=== PATIENT | female | born 1980 | race American Indian/Alaskan Native ===

== ENCOUNTER 2021-05-17 12:43 | Emergency (ER) | payer SELFPAY | END 2021-05-17 13:00 | disposition left against medical advice (07) | LOC: ED 12:43 | DX: Z00.8 Encounter for other general examination (principal); Z53.21 Procedure and treatment not carried out due to patient leaving prior to being seen by health care provider ==

== ENCOUNTER 2021-05-20 08:25 | Emergency (ER) | payer OTHER ==
[2021-05-20 08:56] VITALS: BP 124/83
--- NOTE | 2021-05-20 11:02 | Emergency Department Report ---
- General Chief complaint: Skin/Abscess/Foreign Body Stated complaint: POSSIBLE SPIDER BITE/LT THIGH Time Seen by Provider: 05/20/21 10:52 Source: patient Mode of arrival: Ambulatory Limitations: No Limitations - History of Present Illness Initial comments: 40-year-old -Thai female presents to the emergency room complaining of a possible spider bite to the left thigh for 1 week. Patient states that it is firm red sore. She noticed some drainage but then it gets firm again. She is allergic to doxycycline. Denies any fever chills no nausea no vomiting no difficulty walking. complaint: abscess/boil Onset/Timin -: week(s) Location: LLE Severity scale (0 -10): 5 Quality: stabbing, sharp Consistency: constant Improves with: none Worsens with: none Treatments Prior to Arrival: none, attempted to drain pus at - Related Data Previous Rx's Medication Instructions Recorded Last Taken Type cephALEXin [Keflex] 500 mg PO Q8HR #21 cap 05/20/21 Unknown Rx Allergies Allergy/AdvReac Type Severity Reaction Status Date / Time doxycycline AdvReac Intermediate Angioedema Verified 05/20/21 10:57 Abscess Boil HPI - HPI Chief Complaint: Skin/Abscess/Foreign Body Stated Complaint: POSSIBLE SPIDER BITE/LT THIGH Time Seen by Provider: 05/20/21 10:52 Home Medications: Previous Rx's Medication Instructions Recorded Last Taken Type cephALEXin [Keflex] 500 mg PO Q8HR #21 cap 05/20/21 Unknown Rx Allergies/Adverse Reactions: Allergies Allergy/AdvReac Type Severity Reaction Status Date / Time doxycycline AdvReac Intermediate Angioedema Verified 05/20/21 10:57 ED Review of Systems ROS: Stated complaint: POSSIBLE SPIDER BITE/LT THIGH Other details as noted in HPI Comment: All other systems reviewed and negative ED Past Medical Hx - Past Medical History Previous Medical History?: No - Surgical History Past Surgical History?: Yes Additional Surgical History: Umbilical hernia repair - Social History Smoking Status: Current Every Day Smoker Substance Use Type: Marijuana - Medications Home Medications: Home Medications Medication Instructions Recorded Confirmed Last Taken Type cephALEXin [Keflex] 500 mg PO Q8HR #21 cap 05/20/21 Unknown Rx ED Physical Exam - General Limitations: No Limitations ED Course Vital Signs 05/20/21 05/20/21 08:51 08:54 Temperature 98.0 F Pulse Rate 71 65 Respiratory 18 20 Rate Blood Pressure 155/132 Blood Pressure 124/83 [Left] Blood Pressure 124/83 [Right] O2 Sat by Pulse 100 98 Oximetry ED Medical Decision Making - Medical Decision Making 40-year-old -Thai female presents to the emergency room complaining of a possible spider bite to the left thigh for 1 week. Patient states that it is firm red sore. She noticed some drainage but then it gets firm again. She is allergic to doxycycline. Denies any fever chills no nausea no vomiting no difficulty walking. Patient be treated for abscess with Keflex. Can take ibuprofen and Tylenol as needed for pain. Follow-up with your primary care provider if symptoms persist. Can use warm compresses. Critical care attestation.: If time is entered above; I have spent that time in minutes in the direct care of this critically ill patient, excluding procedure time. ED Disposition Clinical Impression: Abscess Disposition: 01 HOME / SELF CARE / HOMELESS Is pt being admited?: No Does the pt Need Aspirin: No Condition: Stable Instructions: Skin Abscess, [id number] Additional Instructions: Complete antibiotics as prescribed. Ibuprofen as needed for pain. Prescriptions: cephALEXin [Keflex] 500 mg PO Q8HR #21 cap Referrals: OLGA TOBAR MD [Staff Physician] - 3-5 Days Forms: Work/School Release Form(ED)
== END 2021-05-20 12:03 | disposition home or self-care (01) ==
LOC: ED 08:25
DX: L02.416 Cutaneous abscess of left lower limb (principal); F17.200 Nicotine dependence, unspecified, uncomplicated; F12.90 Cannabis use, unspecified, uncomplicated; Z88.8 Allergy status to other drugs, medicaments and biological substances; Z79.899 Other long term (current) drug therapy; Z98.890 Other specified postprocedural states
CPT/HCPCS: 99282

== ENCOUNTER 2022-04-05 11:06 | Emergency (ER) | payer SELFPAY ==
--- NOTE | 2022-04-05 12:00 | Emergency Department Report ---
ED General Adult HPI - General Chief complaint: Earache Stated complaint: HEADACHE/POSSIBLY COVID Time Seen by Provider: 04/05/22 11:55 Source: patient Mode of arrival: Ambulatory Limitations: No Limitations - History of Present Illness -: days(s) (3) Location: mouth, right (ear and sinus) Radiation: non-radiation Quality: aching, sharp Consistency: constant Improves with: none Worsens with: none Associated Symptoms: headaches, other (sore throat). denies: confusion, chest pain, cough, diaphoresis, fever/chills, nausea/vomiting, rash, seizure, shortness of breath, syncope, weakness Treatments Prior to Arrival: none - Related Data Previous Rx's Medication Instructions Recorded Last Taken Type cephALEXin [Keflex] 500 mg PO Q8HR #21 cap 05/20/21 Unknown Rx Amoxicillin/K Clav Tab [Augmentin 1 tab PO Q12HR #20 tab 04/05/22 Unknown Rx 875 mg] Ketorolac [Toradol] 10 mg PO Q6H PRN #15 tablet 04/05/22 Unknown Rx Allergies Allergy/AdvReac Type Severity Reaction Status Date / Time doxycycline AdvReac Intermediate Angioedema Verified 05/20/21 10:57 ED Review of Systems ROS: Stated complaint: HEADACHE/POSSIBLY COVID Other details as noted in HPI Comment: All other systems reviewed and negative ED Past Medical Hx - Surgical History Additional Surgical History: Umbilical hernia repair - Social History Smoking Status: Current Every Day Smoker - Medications Home Medications: Home Medications Medication Instructions Recorded Confirmed Last Taken Type cephALEXin [Keflex] 500 mg PO Q8HR #21 cap 05/20/21 Unknown Rx Amoxicillin/K Clav Tab [Augmentin 1 tab PO Q12HR #20 tab 04/05/22 Unknown Rx 875 mg] Ketorolac [Toradol] 10 mg PO Q6H PRN #15 tablet 04/05/22 Unknown Rx ED Physical Exam - General Limitations: No Limitations General appearance: alert, in no apparent distress - Head Head exam: Present: atraumatic, normocephalic - Eye Eye exam: Present: normal appearance, PERRL, EOMI Pupils: Present: normal accommodation - ENT ENT exam: Present: mucous membranes moist, other (ear mild erythema) - Neck Neck exam: Present: normal inspection - Respiratory Respiratory exam: Present: normal lung sounds bilaterally. Absent: respiratory distress, rales, rhonchi - Cardiovascular Cardiovascular Exam: Present: regular rate, normal rhythm. Absent: systolic murmur, diastolic murmur, rubs, gallop - GI/Abdominal GI/Abdominal exam: Present: soft, normal bowel sounds - Extremities Exam Extremities exam: Present: normal inspection, normal capillary refill - Back Exam Back exam: Present: normal inspection. Absent: CVA tenderness (R), CVA tenderness (L) - Neurological Exam Neurological exam: Present: alert, oriented X3, CN II-XII intact - Psychiatric Psychiatric exam: Present: normal affect, normal mood. Absent: flat affect, manic - Skin Skin exam: Present: warm, dry, intact, normal color. Absent: rash, diaphoretic, erythema ED Course Vital Signs 04/05/22 04/05/22 11:35 11:36 Temperature 98.0 F Pulse Rate 76 76 Respiratory 16 Rate Blood Pressure 118/77 O2 Sat by Pulse 98 98 Oximetry Critical care attestation.: If time is entered above; I have spent that time in minutes in the direct care of this critically ill patient, excluding procedure time. ED Disposition Clinical Impression: Otalgia, Pharyngitis Disposition: HOME / SELF CARE / HOMELESS Is pt being admited?: No Does the pt Need Aspirin: No Condition: Stable Instructions: Ear Drops, Adult, [id number], Pharyngitis, Upper Respiratory Infection, Adult, [id number], Earache, Adult Prescriptions: Amoxicillin/K Clav Tab [Augmentin 875 mg] 1 tab PO Q12HR #20 tab Ketorolac [Toradol] 10 mg PO Q6H PRN #15 tablet PRN Reason: Pain Referrals: [facility] [Provider Group] - 3-5 Days
[2022-04-05 12:16] VITALS: BP 120/88
== END 2022-04-05 12:20 | disposition home or self-care (01) ==
LOC: ED 11:06
DX: H92.09 Otalgia, unspecified ear (principal); J02.9 Acute pharyngitis, unspecified; F17.200 Nicotine dependence, unspecified, uncomplicated; Z88.8 Allergy status to other drugs, medicaments and biological substances
CPT/HCPCS: 99282

== ENCOUNTER 2022-04-24 11:41 | Emergency (ER) | payer SELFPAY ==
[2022-04-24 12:22] VITALS: BP 143/94
--- NOTE | 2022-04-24 12:24 | Event Note ---
ED Screening Note ED Screening Note: acute onset of bumps on legs and arms no pmh This initial assessment/diagnostic orders/clinical plan/treatment(s) is/are subject to change based on patients health status, clinical progression and re- assessment by fellow clinical providers in the ED. Further treatment and workup at subsequent clinical providers discretion. Patient/guardian urged not to elope from the ED as their condition may be serious if not clinically assessed and managed. Initial orders include: need room for physical exam
== END 2022-04-24 22:00 | disposition left against medical advice (07) ==
LOC: ED 11:41
DX: M79.89 Other specified soft tissue disorders (principal); Z53.21 Procedure and treatment not carried out due to patient leaving prior to being seen by health care provider

== ENCOUNTER 2022-05-15 09:47 | Emergency (ER) | payer SELFPAY ==
[2022-05-15] MEDS ORDERED: KETOROLAC 10 MG TAB PO ONE (11:57)
[2022-05-15] MEDS ORDERED: SULFAMETHOXAZOLE/TRIMETHOPRIM 800/160MG DS TAB PO ONE (11:57)
--- NOTE | 2022-05-15 12:00 | Emergency Department Report ---
- General Chief complaint: Skin/Abscess/Foreign Body Stated complaint: ABCESS Time Seen by Provider: 05/15/22 11:39 Source: patient Mode of arrival: Ambulatory Limitations: No Limitations - History of Present Illness Initial comments: 41-year-old black female with no past medical history presents to the emergency department for evaluation of skin problems. She states that for the last several months she has had multiple areas on her skin where she develops a small sore that gets extremely red swollen, has some drainage then starts to dry up and leaves black zheng. He states that she currently has several areas but denies any drainage or fever at this time. complaint: abscess/boil, discoloration -: Gradual, week(s) (3-4) Location: generalized Severity: moderate Severity scale (0 -10): 6 Quality: aching Consistency: constant Associated symptoms: denies other symptoms Treatments Prior to Arrival: none - Related Data Previous Rx's Medication Instructions Recorded Last Taken Type cephALEXin [Keflex] 500 mg PO Q8HR #21 cap 05/20/21 Unknown Rx Amoxicillin/K Clav Tab [Augmentin 1 tab PO Q12HR #20 tab 04/05/22 Unknown Rx 875 mg] Ketorolac [Toradol] 10 mg PO Q6H PRN #15 tablet 04/05/22 Unknown Rx Naproxen [EC-Naprosyn] 500 mg PO BID 7 Days #14 tab 05/15/22 Unknown Rx Sulfamethoxazole/Trimethoprim 1 each PO BID 7 Days #14 tab 05/15/22 Unknown Rx [Bactrim DS TAB] Allergies Allergy/AdvReac Type Severity Reaction Status Date / Time doxycycline AdvReac Intermediate Angioedema Verified 05/15/22 10:47 Abscess Boil HPI - HPI Chief Complaint: Skin/Abscess/Foreign Body Stated Complaint: ABCESS Time Seen by Provider: 05/15/22 11:39 Home Medications: Previous Rx's Medication Instructions Recorded Last Taken Type cephALEXin [Keflex] 500 mg PO Q8HR #21 cap 05/20/21 Unknown Rx Amoxicillin/K Clav Tab [Augmentin 1 tab PO Q12HR #20 tab 04/05/22 Unknown Rx 875 mg] Ketorolac [Toradol] 10 mg PO Q6H PRN #15 tablet 04/05/22 Unknown Rx Naproxen [EC-Naprosyn] 500 mg PO BID 7 Days #14 tab 05/15/22 Unknown Rx Sulfamethoxazole/Trimethoprim 1 each PO BID 7 Days #14 tab 05/15/22 Unknown Rx [Bactrim DS TAB] Allergies/Adverse Reactions: Allergies Allergy/AdvReac Type Severity Reaction Status Date / Time doxycycline AdvReac Intermediate Angioedema Verified 05/15/22 10:47 ED Review of Systems ROS: Stated complaint: ABCESS Other details as noted in HPI Comment: All other systems reviewed and negative Constitutional: denies: chills, fever Respiratory: denies: shortness of breath Cardiovascular: denies: chest pain, palpitations Gastrointestinal: denies: abdominal pain, nausea, vomiting Skin: lesions Neurological: denies: headache, weakness ED Past Medical Hx - Past Medical History Previous Medical History?: No - Surgical History Past Surgical History?: No Additional Surgical History: Umbilical hernia repair - Social History Smoking Status: Current Every Day Smoker - Medications Home Medications: Home Medications Medication Instructions Recorded Confirmed Last Taken Type cephALEXin [Keflex] 500 mg PO Q8HR #21 cap 05/20/21 Unknown Rx Amoxicillin/K Clav Tab [Augmentin 1 tab PO Q12HR #20 tab 04/05/22 Unknown Rx 875 mg] Ketorolac [Toradol] 10 mg PO Q6H PRN #15 tablet 04/05/22 Unknown Rx Naproxen [EC-Naprosyn] 500 mg PO BID 7 Days #14 tab 05/15/22 Unknown Rx Sulfamethoxazole/Trimethoprim 1 each PO BID 7 Days #14 tab 05/15/22 Unknown Rx [Bactrim DS TAB] ED Physical Exam - General Limitations: No Limitations General appearance: alert, in no apparent distress - Head Head exam: Present: atraumatic, normocephalic - Eye Eye exam: Present: normal appearance. Absent: conjunctival injection, periorb ital swelling, periorbital tenderness - ENT ENT exam: Present: normal exam - Neck Neck exam: Present: normal inspection, full ROM. Absent: tenderness - Respiratory Respiratory exam: Absent: respiratory distress - Cardiovascular Cardiovascular Exam: Present: regular rate - GI/Abdominal GI/Abdominal exam: Absent: soft, distended, tenderness - Extremities Exam Extremities exam: Present: normal inspection - Back Exam Back exam: Present: normal inspection - Neurological Exam Neurological exam: Present: alert, oriented X3 - Psychiatric Psychiatric exam: Present: normal affect, normal mood - Skin Skin exam: Present: warm, dry, intact - Expanded Skin Exam Expanded 1 - Area noted to be edematous, slightly erythematous, tender. No drainage noted. 2 - Area noted to be edematous, slightly erythematous, tender. No drainage noted. 3 - Area noted to be edematous, slightly erythematous, tender. No drainage no matt. ED Course Vital Signs 05/15/22 05/15/22 05/15/22 10:45 12:19 12:24 Temperature 98.5 F Pulse Rate 65 69 Respiratory 18 18 Rate Blood Pressure 134/65 138/68 [Left] O2 Sat by Pulse 99 98 98 Oximetry ED Medical Decision Making - Medical Decision Making 41-year-old black female with no past medical history presents to the emergency department for evaluation of skin problems. She states that for the last several months she has had multiple areas on her skin where she develops a small sore that gets extremely red swollen, has some drainage then starts to dry up and leaves black zheng. He states that she currently has several areas but denies any drainage or fever at this time Exam consistent with multiple areas of skin infection. Patient be discharged h ome with 7-day course of Bactrim and naproxen and advised to follow-up with her primary care provider if no improvement or worsening symptoms or return to the emergency department as needed. She verbalizes understanding of and agreement with plan of care. Critical care attestation.: If time is entered above; I have spent that time in minutes in the direct care of this critically ill patient, excluding procedure time. ED Disposition Clinical Impression: Skin infection Disposition: HOME / SELF CARE / HOMELESS Is pt being admited?: No Does the pt Need Aspirin: No Condition: Stable Instructions: Cellulitis, Adult, [id number] Additional Instructions: Take medications as prescribed. Follow-up with your primary care provider if no improvement or worsening symptoms. Return to the emergency department as needed. Prescriptions: Sulfamethoxazole/Trimethoprim [Bactrim DS TAB] 1 each PO BID 7 Days #14 tab Naproxen [EC-Naprosyn] 500 mg PO BID 7 Days #14 tab Referrals: OLGA TOBAR MD [Primary Care Provider] - 3-5 Days Forms: Work/School Release Form(ED) Time of Disposition: 12:00
[2022-05-15 12:26] VITALS: BP 138/68
== END 2022-05-15 12:24 | disposition home or self-care (01) ==
LOC: ED 09:47
DX: L08.9 Local infection of the skin and subcutaneous tissue, unspecified (principal); F17.200 Nicotine dependence, unspecified, uncomplicated; Z88.1 Allergy status to other antibiotic agents; Z79.899 Other long term (current) drug therapy
CPT/HCPCS: 99282